=== PATIENT | female | born 1960 | race Caucasian/White ===

== ENCOUNTER 2020-07-20 22:16 | Observation (INO) ==
[2020-07-20 22:41] LABS: Basophils # 0.1 K/mcL (0.0-0.2); Basophils % 0.7 %; Eosinophils # 0.1 K/mcL (0.0-0.6); Eosinophils % 0.7 %; Hematocrit 41.2 % (35.3-44.9); Hemoglobin 13.7 g/dL (11.5-15.4); Lymphocytes # 2.7 K/mcL (0.6-4.6); Lymphocytes % 29.5 %; Mean Corpuscular HGB Conc 33.3 g/dL (31.6-35.5); Mean Corpuscular Hemoglobin 32.5 pg (28.0-33.3); Mean Corpuscular Volume 97.9 fL (83.0-100.0); Mean Platelet Volume 9.2 fL (9.4-12.4); Monocytes # 0.4 K/mcL (0.0-1.3); Monocytes % 4.1 %; Neutrophils # 5.9 K/mcL (1.6-8.9); Platelet Count 244 K/mcL (140-400); Red Blood Count 4.21 M/mcL (3.82-4.97); Red Cell Distribution Width 11.9 % (11.5-14.5); White Blood Count 9.1 K/mcL (4.3-11.1)
[2020-07-20 22:58] LABS: Activated Partial Thrombo Time 25.8 Seconds (26.0-36.0)
[2020-07-20 23:06] LABS: Alanine Aminotransferase 27 Units/L (7-52); Albumin/Globulin Ratio 1.5 (1.1-2.2); Alkaline Phosphatase 61 Units/L (34-104); Aspartate Amino Transferase 29 Units/L (13-39); BUN/Creatinine Ratio 10 (6-26); Bilirubin,Indirect 0.4 mg/dL (0.0-1.0); Bilirubin,Total 0.4 mg/dL (0.3-1.0); Blood Urea Nitrogen 8 mg/dL (6-20); Calcium 9.3 mg/dL (8.6-10.3); Carbon Dioxide 20 mEq/L (23-29); Chloride 99 mEq/L (98-107); Ethanol 324 mg/dL (Less than 10); Globulin 3.3 g/dL (2.4-3.5); Glucose 134 mg/dL (70-105); Lipase 18 Units/L (11-82); Osmolality,Calculated 280 (280-300); Potassium 3.6 mEq/L (3.5-5.1); Sodium 135 mEq/L (136-145); Total Protein 8.3 g/dL (6.4-8.9); Troponin I < 0.03 ng/mL (< 0.04); eGFR For African Americans > 60 (> 60); eGFR For Non-African Americans > 60 (> 60)
[2020-07-21] MEDS ORDERED: Naloxone 0.4 MG/ML INJ IVP PRN (00:23)
[2020-07-21] MEDS ORDERED: Ondansetron ODT 4 MG TAB.RAPDIS SL PRN (00:23)
[2020-07-21] MEDS ORDERED: 0.9 % Sodium Chloride 1,000 ML IVC ONE (01:34)
[2020-07-21 03:15] LABS: Magnesium 2.1 mg/dL (1.6-2.6); Phosphorous 3.6 mg/dL (2.7-4.5)
[2020-07-21 03:17] LABS: Troponin I < 0.03 ng/mL (< 0.04)
[2020-07-21 03:28] LABS: Thyroid Stimulating Hormone 0.743 mcIU/mL (0.340-5.600)
[2020-07-21] MEDS ORDERED: Regadenoson 0.4 MG/5 ML SYRINGE IVP ONE (06:03)
[2020-07-21] MEDS: *HR* Heparin 5,000 UNIT/ML VIAL SQ SCH ×3 (06:09→20:31)
[2020-07-21] MEDS ORDERED: Perflutren Lipid Microsphere 1.3 ML in 0.9 % Sodium Chloride 8.7 ML IVP PRN (07:39)
[2020-07-21 10:14] LABS: Basophils % 0.3 %; Eosinophils % 0.1 %; Hematocrit 37.4 % (35.3-44.9); Hemoglobin 12.6 g/dL (11.5-15.4); Immature Granulocytes % 0.3 % (0-4); Lymphocytes # 1.6 K/mcL (0.6-4.6); Lymphocytes % 15.7 %; Mean Corpuscular HGB Conc 33.7 g/dL (31.6-35.5); Mean Corpuscular Hemoglobin 33.3 pg (28.0-33.3); Mean Corpuscular Volume 98.9 fL (83.0-100.0); Mean Platelet Volume 9.7 fL (9.4-12.4); Monocytes # 0.7 K/mcL (0.0-1.3); Monocytes % 6.3 %; Neutrophils # 8.1 K/mcL (1.6-8.9); Platelet Count 228 K/mcL (140-400); Red Blood Count 3.78 M/mcL (3.82-4.97); Red Cell Distribution Width 12.1 % (11.5-14.5); Segmented Neutrophils % 77.3 %; White Blood Count 10.4 K/mcL (4.3-11.1)
[2020-07-21 10:35] LABS: BUN/Creatinine Ratio 9 (6-26); Blood Urea Nitrogen 8 mg/dL (6-20); Calcium 9.2 mg/dL (8.6-10.3); Carbon Dioxide 20 mEq/L (23-29); Chloride 107 mEq/L (98-107); Glucose 105 mg/dL (70-105); Osmolality,Calculated 293 (280-300); Sodium 142 mEq/L (136-145); eGFR For African Americans > 60 (> 60); eGFR For Non-African Americans > 60 (> 60)
[2020-07-21] MEDS ORDERED: Albuterol 2.5 MG/3 ML NEBULIZER IH PRN (11:06)
[2020-07-21] MEDS ORDERED: SUMATRIPTAN NS PRN (11:06)
[2020-07-21] MEDS ORDERED: SUMAtriptan succinate 50 MG TABLET PO PRN (11:32)
[2020-07-21] MEDS: Isosorbide MONOnitrate (24 HR) 30 MG TAB.ER.24H PO SCH (13:19)
[2020-07-21] MEDS: Pregabalin 75 MG CAPSULE PO SCH ×2 (15:35→20:30)
[2020-07-21] MEDS: tiZANidine 4 MG TABLET PO SCH ×2 (15:36→20:31)
[2020-07-21] MEDS: Budesonide/Formoterol 80/4.5 1 PUFF INH IH SCH (20:08)
[2020-07-22] MEDS: *HR* Heparin 5,000 UNIT/ML VIAL SQ SCH ×3 (05:28→21:34)
[2020-07-22 06:14] LABS: Hematocrit 35.2 % (35.3-44.9); Hemoglobin 11.5 g/dL (11.5-15.4); Mean Corpuscular HGB Conc 32.7 g/dL (31.6-35.5); Mean Corpuscular Hemoglobin 32.2 pg (28.0-33.3); Mean Corpuscular Volume 98.6 fL (83.0-100.0); Platelet Count 193 K/mcL (140-400); Red Blood Count 3.57 M/mcL (3.82-4.97)
[2020-07-22 06:33] LABS: BUN/Creatinine Ratio 15 (6-26); Blood Urea Nitrogen 13 mg/dL (6-20); Calcium 9.1 mg/dL (8.6-10.3); Carbon Dioxide 26 mEq/L (23-29); Chloride 101 mEq/L (98-107); Glucose 105 mg/dL (70-105); Osmolality,Calculated 284 (280-300); Potassium 3.6 mEq/L (3.5-5.1); Sodium 137 mEq/L (136-145); eGFR For African Americans > 60 (> 60); eGFR For Non-African Americans > 60 (> 60)
[2020-07-22 06:35] LABS: Chol/HDL Ratio 3.5 (0-4.9)
[2020-07-22] MEDS: Cyanocobalamin (B-12) 1,000 MCG TABLET PO SCH (08:34)
[2020-07-22] MEDS: tiZANidine 4 MG TABLET PO SCH (08:35)
[2020-07-22] MEDS: Pregabalin 75 MG CAPSULE PO SCH ×2 (08:35→22:52)
[2020-07-22] MEDS: Isosorbide MONOnitrate (24 HR) 30 MG TAB.ER.24H PO SCH (08:35)
[2020-07-22] MEDS ORDERED: lisinopriL 20 MG TABLET PO SCH (09:00)
[2020-07-22] MEDS: Tiotropium 10 INH DOSE IH SCH (10:50)
[2020-07-22] MEDS: Budesonide/Formoterol 80/4.5 1 PUFF INH IH SCH ×2 (10:51→21:46)
[2020-07-22] MEDS ORDERED: Albumin 25% 25gram/100mL 25 GM/100 ML IV.SOLN IVPB ONE (11:07)
[2020-07-22] MEDS: Aspirin 81 MG TAB.CHEW PO SCH (11:41)
[2020-07-22] MEDS ORDERED: Pregabalin 75 MG CAPSULE PO SCH (22:27)
[2020-07-23 02:59] LABS: Basophils % 0.3 %; Eosinophils # 0.1 K/mcL (0.0-0.6); Eosinophils % 0.7 %; Hematocrit 34.2 % (35.3-44.9); Hemoglobin 11.1 g/dL (11.5-15.4); Immature Granulocytes % 0.2 % (0-4); Lymphocytes # 3.1 K/mcL (0.6-4.6); Lymphocytes % 35.6 %; Mean Corpuscular HGB Conc 32.5 g/dL (31.6-35.5); Mean Corpuscular Hemoglobin 32.3 pg (28.0-33.3); Mean Corpuscular Volume 99.4 fL (83.0-100.0); Mean Platelet Volume 10.4 fL (9.4-12.4); Monocytes # 0.7 K/mcL (0.0-1.3); Monocytes % 7.5 %; Neutrophils # 4.9 K/mcL (1.6-8.9); Platelet Count 179 K/mcL (140-400); Red Blood Count 3.44 M/mcL (3.82-4.97); Red Cell Distribution Width 11.9 % (11.5-14.5); Segmented Neutrophils % 55.7 %; White Blood Count 8.8 K/mcL (4.3-11.1)
[2020-07-23 03:13] LABS: Calcium 9.1 mg/dL (8.6-10.3); Potassium 3.6 mEq/L (3.5-5.1)
[2020-07-23] MEDS: *HR* Heparin 5,000 UNIT/ML VIAL SQ SCH ×3 (05:49→21:17)
[2020-07-23] MEDS ORDERED: 0.9 % Sodium Chloride 1,000 ML IVC SCH ×2 (07:45→10:00)
[2020-07-23] MEDS: Budesonide/Formoterol 80/4.5 1 PUFF INH IH SCH ×2 (07:47→19:35)
[2020-07-23] MEDS: Aspirin 81 MG TAB.CHEW PO SCH (07:47)
[2020-07-23] MEDS: Tiotropium 10 INH DOSE IH SCH (07:47)
[2020-07-23] MEDS: Pregabalin 75 MG CAPSULE PO SCH ×2 (07:55→21:16)
[2020-07-23] MEDS: Cyanocobalamin (B-12) 1,000 MCG TABLET PO SCH (07:55)
[2020-07-23] MEDS: Isosorbide MONOnitrate (24 HR) 30 MG TAB.ER.24H PO SCH (07:55)
[2020-07-23] MEDS ORDERED: Ergocalciferol (VIT D2) 50,000 UNIT (1.25MG) CAP PO SCH (09:00)
[2020-07-23] MEDS: tiZANidine 4 MG TABLET PO SCH ×3 (10:00→21:17)
[2020-07-23] MEDS: diazePAM 5 MG TABLET PO PRN ×2 (13:17→21:17)
[2020-07-24] MEDS: *HR* Heparin 5,000 UNIT/ML VIAL SQ SCH ×3 (05:52→20:18)
[2020-07-24 06:41] LABS: Hematocrit 32.3 % (35.3-44.9); Hemoglobin 10.7 g/dL (11.5-15.4)
[2020-07-24 07:01] LABS: BUN/Creatinine Ratio 22 (6-26); Blood Urea Nitrogen 22 mg/dL (6-20); Calcium 8.8 mg/dL (8.6-10.3); Carbon Dioxide 26 mEq/L (23-29); Chloride 106 mEq/L (98-107); Glucose 100 mg/dL (70-105); Osmolality,Calculated 291 (280-300); Potassium 3.8 mEq/L (3.5-5.1); Sodium 139 mEq/L (136-145); eGFR For African Americans > 60 (> 60); eGFR For Non-African Americans 56 (> 60)
[2020-07-24] MEDS ORDERED: Isovue-370 500 ML BOTTLE IVP ONE (08:14)
[2020-07-24] MEDS ORDERED: Nitroglycerin 0.4 MG TAB.SUBL SL PRN (08:14)
[2020-07-24] MEDS ORDERED: *HR* Metoprolol 5 MG/5 ML VIAL IVP PRN (08:14)
[2020-07-24] MEDS ORDERED: Metoprolol 100 MG TABLET PO ONE (08:14)
[2020-07-24] MEDS: Budesonide/Formoterol 80/4.5 1 PUFF INH IH SCH ×2 (08:41→20:40)
[2020-07-24] MEDS: Tiotropium 10 INH DOSE IH SCH (08:41)
[2020-07-24] MEDS: diazePAM 5 MG TABLET PO PRN ×2 (09:21→20:25)
[2020-07-24] MEDS: Pregabalin 75 MG CAPSULE PO SCH ×2 (09:22→20:18)
[2020-07-24] MEDS: Aspirin 81 MG TAB.CHEW PO SCH (09:22)
[2020-07-24] MEDS: tiZANidine 4 MG TABLET PO SCH ×3 (09:22→20:17)
[2020-07-24] MEDS ORDERED: diazePAM 5 MG TABLET PO ONE (09:22)
[2020-07-24] MEDS: Isosorbide MONOnitrate (24 HR) 30 MG TAB.ER.24H PO SCH (09:24)
[2020-07-24] MEDS: Cyanocobalamin (B-12) 1,000 MCG TABLET PO SCH (09:24)
[2020-07-24 12:37] LABS: % Iron Saturation 25 % (15-50); Iron 79 mcg/dL (50-170); Transferrin 225 mg/dL (203-362)
[2020-07-24 12:55] LABS: Ferritin 361 ng/mL (10-120)
[2020-07-24 13:00] LABS: Folate 15.1 ng/mL (3.0-16.0)
[2020-07-24 13:37] LABS: Estimated Average Glucose 111 mg/dl; Hemoglobin A1C 5.5 %
[2020-07-24] MEDS ORDERED: 0.9 % Sodium Chloride 1,000 ML ONE (13:58)
[2020-07-24] MEDS ORDERED: 0.9 % Sodium Chloride 1,000 ML IVC SCH (14:30)
[2020-07-25] MEDS: diazePAM 5 MG TABLET PO PRN (06:23)
[2020-07-25] MEDS: *HR* Heparin 5,000 UNIT/ML VIAL SQ SCH ×2 (06:23→14:03)
[2020-07-25 06:41] LABS: Basophils % 0.6 %; Eosinophils # 0.2 K/mcL (0.0-0.6); Eosinophils % 3.4 %; Hematocrit 34.7 % (35.3-44.9); Hemoglobin 11.5 g/dL (11.5-15.4); Immature Granulocytes % 0.3 % (0-4); Lymphocytes # 1.7 K/mcL (0.6-4.6); Lymphocytes % 24.9 %; Mean Corpuscular HGB Conc 33.1 g/dL (31.6-35.5); Mean Corpuscular Hemoglobin 33.4 pg (28.0-33.3); Mean Corpuscular Volume 100.9 fL (83.0-100.0); Mean Platelet Volume 10.6 fL (9.4-12.4); Monocytes # 0.5 K/mcL (0.0-1.3); Monocytes % 6.9 %; Neutrophils # 4.5 K/mcL (1.6-8.9); Platelet Count 186 K/mcL (140-400); Red Blood Count 3.44 M/mcL (3.82-4.97); Red Cell Distribution Width 11.9 % (11.5-14.5); Segmented Neutrophils % 63.9 %
[2020-07-25 06:49] LABS: Magnesium 1.7 mg/dL (1.6-2.6); Phosphorous 2.9 mg/dL (2.7-4.5)
[2020-07-25 06:52] LABS: BUN/Creatinine Ratio 16 (6-26); Blood Urea Nitrogen 14 mg/dL (6-20); Calcium 9.4 mg/dL (8.6-10.3); Carbon Dioxide 24 mEq/L (23-29); Chloride 107 mEq/L (98-107); Glucose 93 mg/dL (70-105); Osmolality,Calculated 294 (280-300); Potassium 3.9 mEq/L (3.5-5.1); Sodium 142 mEq/L (136-145); eGFR For African Americans > 60 (> 60); eGFR For Non-African Americans > 60 (> 60)
[2020-07-25 07:34] LABS: Estimated Average Glucose 114 mg/dl; Hemoglobin A1C 5.6 %
[2020-07-25] MEDS ORDERED: hydroCHLOROthiazide 25 MG TABLET PO SCH (09:00)
[2020-07-25] MEDS: Pregabalin 75 MG CAPSULE PO SCH (09:19)
[2020-07-25] MEDS: Cyanocobalamin (B-12) 1,000 MCG TABLET PO SCH (09:21)
[2020-07-25] MEDS: Aspirin 81 MG TAB.CHEW PO SCH (09:22)
[2020-07-25] MEDS: tiZANidine 4 MG TABLET PO SCH ×2 (09:24→14:04)
[2020-07-25] MEDS: Tiotropium 10 INH DOSE IH SCH (09:29)
[2020-07-25] MEDS: Budesonide/Formoterol 80/4.5 1 PUFF INH IH SCH (09:29)
[2020-07-25] MEDS: NIFEdipine Immed Rel 10 MG CAPSULE PO SCH ×2 (10:29→14:04)
[2020-07-25] MEDS ORDERED: Acetaminophen 325 MG TABLET PO PRN (10:51)
[2020-07-25 11:34] VITALS: BP 106/78
[2020-07-25] MEDS: Isosorbide MONOnitrate (24 HR) 30 MG TAB.ER.24H PO SCH (11:45)
== END 2020-07-25 14:04 | disposition home or self-care (01) ==
LOC: EMEROOARM 22:16 → 3BNU 22:16 → SUATTDRO 23:47 → 3BNU 07-21 00:27
PROVIDERS: ADMIT Family Medicine; ATTEND Internal Medicine